=== PATIENT | female | born 1945 | race Caucasian/White ===

== ENCOUNTER 2017-10-21 11:57 | Inpatient (IN) | payer OTHER ==
[~2017-10-21] VITALS: Ht 154.9 cm; Wt 120.0 kg
[~2017-10-21 11:57] MED LIST: ADVAIR HFA120 INHALA IH; ALBUTEROL MDI IH; ASPIRIN81 M2 PO; Advair HFA 115/21 IH; Cardizem CD,Cartia X PO; DILTIAZEM 24HR360 M1 PO; KLOR-CON 1010 ME1 PO; LASIX40 MG PO; Lasix PO; METFORMIN HCL850 MG PO; Micro-K,K-Tab,K-Dur, PO; PRAVASTATIN SOD10 MG PO; PROAIR HFA8.5 GM IH; SINGULAIR10 MG PO; SPIRIVA1 INHALATI IH; Singulair PO; TYLENOL ARTHRI650 MG PO; VALSARTAN320 MG PO; Zestril,Prinivil PO; Zithromax PO; predniSONE PO
[2017-10-21 12:38] LABS: HEMATOCRIT 39.4 % (36.0-46.0); MCH 28.2 PG (29.0-34.0); MCHC 31.7 G/DL (30.0-36.0); MCV 88.7 FL (83-99); MEAN PLAT.VOLUME 11.2 uM^3 (9.5-12.4); PLATELET COUNT 311 K/uL (156-360); RBC DIS.WIDTH-CV 13.9 % (11.8-14.6); RED BLOOD COUNT 4.44 M/uL (3.80-5.20); WHITE BLOOD COUNT 8.8 K/uL (4.1-10.2)
[2017-10-21 12:47] LABS: CHLORIDE 108 mEq/L (99-109); POTASSIUM 3.9 mEq/L (3.7-5.4); SODIUM 141 mEq/L (136-147)
[2017-10-21 12:49] LABS: GLUCOSE 112 mg/dL (70-99)
[2017-10-21 12:50] LABS: ANION GAP 14 MEQ/L (2-14)
[2017-10-21 12:53] LABS: GFR ESTIMATE (CALCULATED) > 59 mL/min/
[2017-10-21 12:54] LABS: UREA NITROGEN (BUN) 15 mg/dL (9-23)
[2017-10-21 12:57] LABS: TROP-I INTERPRETATION NEGATIVE; TROPONIN-I < 0.01 ng/mL (0.0-0.30)
[2017-10-21 14:03] LABS: MAGNESIUM 1.4 mg/dL (1.3-2.7)
[2017-10-21 14:24] LABS: HDL CHOLESTEROL 54 MG/DL (Desirable>=50); LDL CHOLESTEROL 55 mg/dL (Desirable<100); NON-HDL CHOLESTEROL 91 mg/dL (Desirable<160); TOTAL CHOLESTEROL 145 mg/dL (Desirable<200); TRIGLYCERIDES 178 MG/DL (Normal: <150)
[2017-10-21 17:34] LABS: TROP-I INTERPRETATION NEGATIVE; TROPONIN-I < 0.01 ng/mL (0.0-0.30)
[2017-10-21 18:00] VITALS: BP 164/83
[2017-10-21 19:45] VITALS: BP 185/78
[2017-10-21 20:58] LABS: POINT-OF-CARE METER ID UU14174216
[2017-10-22] VITALS (7 sets, daily range): BP systolic 128–178; BP diastolic 61–81
[2017-10-22 01:06] LABS: TROP-I INTERPRETATION NEGATIVE; TROPONIN-I < 0.01 ng/mL (0.0-0.30)
[2017-10-22 07:41] LABS: POINT-OF-CARE METER ID UU13113698
[2017-10-22 11:35] LABS: POINT-OF-CARE METER ID UU13113781
[2017-10-22 16:20] LABS: POINT-OF-CARE METER ID UU14314088
[2017-10-22 21:09] LABS: POINT-OF-CARE METER ID UU13113698
[2017-10-23 05:35] LABS: EOSINOPHIL (%) 0 % (0-5); IMMATURE GRANULOCYTE (%) 0.9 % (0.0-0.7); IMMATURE GRANULOCYTE COUNT 0.1 K/uL; MCHC 30.8 G/DL (30.0-36.0); MCV 87.6 FL (83-99); MEAN PLAT.VOLUME 11.1 uM^3 (9.5-12.4); MONOCYTE (%) 4.6 % (3-12); MONOCYTE COUNT 0.6 K/uL (0-0.8); NEUTROPHIL (%) 86.7 % (45-76); PLATELET COUNT 285 K/uL (156-360); RBC DIS.WIDTH-SD 44.9 % (39-53); RED BLOOD COUNT 4.11 M/uL (3.80-5.20); WHITE BLOOD COUNT 12.7 K/uL (4.1-10.2)
[2017-10-23 05:43] VITALS: BP 140/75
[2017-10-23 06:08] LABS: ALKALINE PHOSPHATASE 61 IU/L (3-129); ANION GAP 10 MEQ/L (2-14); CHLORIDE 105 MEQ/L (99-109); GFR ESTIMATE (CALCULATED) 58 mL/min/; POTASSIUM 4.2 MEQ/L (3.7-5.4); SAMPLE HEMOLYSIS CHECK 0; SAMPLE ICTERIC CHECK 0; SAMPLE LIPEMIA CHECK 0; SODIUM 139 MEQ/L (136-147); TOTAL BILIRUBIN 0.3 MG/DL (0.0-1.0); UREA NITROGEN (BUN) 20 mg/dL (9-23)
[2017-10-23 06:10] LABS: GLUCOSE 190 mg/dL (70-99)
[2017-10-23 07:15] VITALS: BP 172/77
[2017-10-23 07:51] LABS: POINT-OF-CARE METER ID UU13113781
[2017-10-23] MEDS ORDERED: ELIQUIS5 MG PO (10:13)
[2017-10-23] MEDS ORDERED: LEVAQUIN750 MG PO (11:03)
[2017-10-23] MEDS ORDERED: PREDNISONE10 MG PO (11:05)
[2017-10-23] MEDS ORDERED: DILTIAZEM 24HR120 MG PO (11:05)
[2017-10-23 11:20] VITALS: BP 145/70
[2017-10-23 11:55] LABS: POINT-OF-CARE METER ID UU13113781
== END 2017-10-23 13:10 | disposition home or self-care (01) | DRG 308 ==
LOC: EME 11:57 → EDOF 12:59 → 4EAST 12:59 → ENRESERV 13:02 → 4EAST 17:44
PROVIDERS: Emergency Medicine; Hospitalist; Internal Medicine
DX: I48.91 Unspecified atrial fibrillation (principal); J44.1 Chronic obstructive pulmonary disease with (acute) exacerbation; J44.0 Chronic obstructive pulmonary disease with (acute) lower respiratory infection; J18.9 Pneumonia, unspecified organism; I11.0 Hypertensive heart disease with heart failure; E66.9 Obesity, unspecified; E11.9 Type 2 diabetes mellitus without complications; E78.5 Hyperlipidemia, unspecified; Z79.82 Long term (current) use of aspirin; Z79.4 Long term (current) use of insulin; Z68.43 Body mass index [BMI] 50.0-59.9, adult; Z87.891 Personal history of nicotine dependence
CPT/HCPCS: 36415; 71010; 71020; 71275; 80048; 80053; 80061; 82948; 83036; 83735; 84443; 84460; 84484; 85025; 85027; 85379; 90686; 93005; 93306; 94640; 94640 76; 99202; 99281; 99285; J1815; J1956; J2930; J7050; J7512